=== PATIENT | female | born 1995 | race Caucasian/White ===

== ENCOUNTER 2021-12-16 15:47 | Emergency (ER) | payer OTHER ==
[~2021-12-16] VITALS: Ht 165.1 cm; Wt 70.3 kg
[2021-12-16] MEDS ORDERED: NASAL DECONGEST30 MG PO (16:22)
[2021-12-16] MEDS ORDERED: PREDNISONE20 MG PO (16:22)
--- OUTSIDE RECORDS SUMMARY | 2021-12-16 16:46 | XMS ---
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 Opal VISIT COUNT (12 MO.) Kamar Mena TOTAL 1 NOTE: Visits indicate total known visits. ED/UCC VISIT TRACKING (12 MO.) 12/16/2021 15:47 [facility] [place] TYPE: Emergency COMPLAINT: - EAR PROBLEM INPATIENT VISIT TRACKING (12 MO.) No inpatient visits to display in this time frame [email or web address]
== END 2021-12-16 16:37 | disposition home or self-care (01) ==
LOC: ED 15:47
DX: H69.83 Other specified disorders of Eustachian tube, bilateral (principal); J32.9 Chronic sinusitis, unspecified
CPT/HCPCS: 99282; J8540

== ENCOUNTER 2022-01-09 09:31 | Emergency (ER) | payer OTHER ==
[~2022-01-09] VITALS: Ht 165.1 cm; Wt 70.3 kg
[~2022-01-09 09:31] MED LIST: NASAL DECONGEST30 MG PO; PREDNISONE20 MG PO
--- OUTSIDE RECORDS SUMMARY | 2022-01-09 09:40 | XMS ---
PreManage Notification: BRISSA BARONE Security Math Instructor Events No recent Security Events currently on file CRITERIA MET - [facility] - 2 Visits in 30 Days [facility]Current PHONE: [phone] ANN ARGUETA Dimension Warehouse Supervisor/Magazine Hand Current [facility] CARE TEAM PHONE: Unknown Bebe has no Care Guidelines for this patient. EBenjy VISIT COUNT (12 MO.) [address] [place] [address] TOTAL 2 NOTE: Visits indicate total known visits. ED/UCC VISIT TRACKING (12 MO.) 01/09/2022 09:33 [facility] OR TYPE: Emergency COMPLAINT: - L EAR PAIN 12/16/2021 15:47 [facility]RISTINA Gama OR TYPE: Emergency COMPLAINT: - EAR PROBLEM DIAGNOSES: - Chronic sinusitis, unspecified - Other specified disorders of Eustachian tube, bilateral - Otalgia, bilateral INPATIENT VISIT TRACKING (12 MO.) No inpatient visits to display in this time frame [email or web address]
[2022-01-09] MEDS ORDERED: PREDNISONE20 MG PO (10:54)
== END 2022-01-09 11:02 | disposition home or self-care (01) ==
LOC: ED 09:31
DX: H69.93 Unspecified Eustachian tube disorder, bilateral (principal); Z79.52 Long term (current) use of systemic steroids
CPT/HCPCS: 99282; J7512